=== PATIENT | female | born 2000 | race Caucasian/White ===

== ENCOUNTER → 2018-07-28 | Outpatient (CLI) | payer OTHER ==
[~2018-07-28] MED LIST: BCP; CRUTCH4 USE; MEDR150I IM; Prednisone20 MG PO; TRIA80TC TOP; Triamcinolone A15 GM TOP
== END ==
LOC: LAB SHORT 11:54 → LAB 11:54
DX: Z20.2 Contact with and (suspected) exposure to infections with a predominantly sexual mode of transmission (principal)
CPT/HCPCS: 87070; 87205

== ENCOUNTER 2019-02-21 12:38 | Day surgery (SDC) | payer OTHER ==
[2019-02-21 13:05] LABS: Hematocrit 41.3 % (33.0-51.0); Mean Corpuscular HGB 29.7 pg (26.0-34.0); Mean Corpuscular HGB Conc 33.9 g/dL (31.5-36.5); Mean Corpuscular Volume 88 fL (80-100); Mean Platelet Volume 11.4 fL (9.1-12.4); Platelet Count 252 K/mm3 (150-400); RDW Coefficient Variation 13.8 % (11.7-14.2); RDW Standard Deviation 44.5 fL (35.1-46.3); Red Blood Cell Count 4.71 M/mm3 (3.80-5.20); White Blood Cell Count 14.02 K/mm3 (4.00-11.30)
[2019-02-22] MEDS ORDERED: SERT25 PO (13:03)
== END 2019-02-21 22:43 | disposition home or self-care (01) ==
LOC: PRE 12:38 → EDSTATUS 02-17 10:50 → LAB FUT 02-17 10:50
PROVIDERS: Obstetrics & Gynecology
DX: O02.1 Missed abortion (principal)
CPT/HCPCS: 36415; 84702; 85027; 86850; 86900; 86901

== ENCOUNTER 2019-02-22 12:13 | Day surgery (SDC) | payer OTHER ==
[~2019-02-22] VITALS: Ht 167.6 cm; Wt 56.9 kg
[2019-02-22] MEDS ORDERED: SERT25 PO (13:03)
== END 2019-02-22 15:45 | disposition home or self-care (01) ==
LOC: ORSCSDS 12:13
PROVIDERS: Obstetrics & Gynecology
PROC: 10A07Z6 Abortion of Products of Conception, Vacuum, Via Natural or Artificial Opening (ICD-10-PCS; principal; 2019-02-22 13:30)
DX: O02.1 Missed abortion (principal); F17.210 Nicotine dependence, cigarettes, uncomplicated
CPT/HCPCS: 88305; J0690; J1100; J1885; J2210; J2250; J2405; J2704; J3010

== ENCOUNTER 2020-05-11 22:49 | Inpatient (IN) | payer OTHER ==
[~2020-05-11] VITALS: Ht 165.1 cm; Wt 63.0 kg
[~2020-05-11 22:49] MED LIST changes: +AMPDEX30CR; +CLON.5 PO; +SERT25 PO
[2020-05-11 23:58] LABS: U Amphetamine Screen Not Detected; U Barbituate Screen Not Detected; U Benzodiazapine Screen Not Detected; U Buprenorphine Screen Not Detected; U Cannabinoids Screen Not Detected; U Cocaine Screen Not Detected; U Methadone Screen Not Detected; U Methamphetamine Screen Not Detected; U Opiates Screen Not Detected; U Oxycodone Screen Not Detected; U Phencyclidine Screen Not Detected; U Propoxyphene Screen Not Detected
[2020-05-12 00:36] LABS: BASOPHILS ABSOLUTE AUTO 0.06 K/mm3 (0.00-0.23); BASOPHILS PERCENT AUTO 0 % (0-2); EOSINOPHILS ABSOLUTE AUTO 0.04 K/mm3 (0.00-0.68); EOSINOPHILS PERCENT AUTO 0 % (0-6); Hematocrit 39.4 % (33.0-51.0); Hemoglobin 13.3 g/dL (11.5-16.0); IMMATURE GRAN ABSOLUTE AUTO 0.08 K/mm3 (0.00-0.10); IMMATURE GRAN PERCENT AUTO 1 % (0-1); LYMPHOCYTES ABSOLUTE AUTO 1.96 K/mm3 (0.84-5.20); LYMPHOCYTES PERCENT AUTO 11 % (21-46); MONOCYTES ABSOLUTE AUTO 0.92 K/mm3 (0.16-1.47); MONOCYTES PERCENT AUTO 5 % (4-13); Mean Corpuscular HGB Conc 33.8 g/dL (31.5-36.5); Mean Corpuscular Volume 89 fL (80-100); Mean Platelet Volume 12.1 fL (9.1-12.4); NEUTROPHILS PERCENT AUTO 83 % (41-73); Platelet Count 241 K/mm3 (150-400); Red Blood Cell Count 4.43 M/mm3 (3.80-5.20); White Blood Cell Count 17.56 K/mm3 (4.00-11.30)
--- NOTE | 2020-05-12 13:55 | NUR ---
REPORT OFF TO TABITHA PASCUAL RN
[2020-05-13 04:59] LABS: Hematocrit 33.9 % (33.0-51.0); Mean Corpuscular HGB 29.6 pg (26.0-34.0); Mean Corpuscular HGB Conc 32.4 g/dL (31.5-36.5); Mean Corpuscular Volume 91 fL (80-100); Mean Platelet Volume 11.8 fL (9.1-12.4); Platelet Count 199 K/mm3 (150-400); RDW Coefficient Variation 13.4 % (11.7-14.2); RDW Standard Deviation 43.4 fL (35.1-46.3); Red Blood Cell Count 3.71 M/mm3 (3.80-5.20); White Blood Cell Count 12.14 K/mm3 (4.00-11.30)
== END 2020-05-13 11:30 | disposition home or self-care (01) | DRG 807 ==
LOC: OBS 22:49 → BC 22:52 → OBS 23:15 → BC 23:37
PROVIDERS: Advanced Practice Midwife; ADMIT Obstetrics & Gynecology
PROC: 10E0XZZ Delivery of Products of Conception, External Approach (ICD-10-PCS; principal; 2020-05-12)
PROC: 00HU33Z Insertion of Infusion Device into Spinal Canal, Percutaneous Approach (ICD-10-PCS; 2020-05-12)
PROC: 3E0R3BZ Introduction of Anesthetic Agent into Spinal Canal, Percutaneous Approach (ICD-10-PCS; 2020-05-12)
DX: O99.824 Streptococcus B carrier state complicating childbirth (principal); Z37.0 Single live birth; Z3A.39 39 weeks gestation of pregnancy; O99.324 Drug use complicating childbirth; F14.11 Cocaine abuse, in remission; O69.81X0 Labor and delivery complicated by cord around neck, without compression, not applicable or unspecified
CPT/HCPCS: 36415; 51702; 85025; 85027; 86850; 86900; 86901; A9270; J0290; J1885; J2001; J2590; J3010; J7120

== ENCOUNTER → 2021-09-19 | Outpatient (CLI) | payer OTHER ==
[2021-09-19 16:52] LABS: BASOPHILS ABSOLUTE AUTO 0.12 K/mm3 (0.00-0.23); BASOPHILS PERCENT AUTO 1 % (0-2); EOSINOPHILS ABSOLUTE AUTO 0.07 K/mm3 (0.00-0.68); EOSINOPHILS PERCENT AUTO 1 % (0-6); Hematocrit 40.3 % (33.0-51.0); Hemoglobin 12.7 g/dL (11.5-16.0); IMMATURE GRAN ABSOLUTE AUTO 0.05 K/mm3 (0.00-0.10); IMMATURE GRAN PERCENT AUTO 1 % (0-1); LYMPHOCYTES PERCENT AUTO 19 % (21-46); MONOCYTES ABSOLUTE AUTO 0.62 K/mm3 (0.16-1.47); MONOCYTES PERCENT AUTO 7 % (4-13); Mean Corpuscular HGB Conc 31.5 g/dL (31.5-36.5); Mean Corpuscular Volume 92 fL (80-100); Mean Platelet Volume 11.8 fL (9.1-12.4); NEUTROPHILS ABSOLUTE AUTO 6.34 K/mm3 (1.96-9.15); NEUTROPHILS PERCENT AUTO 71 % (41-73); Platelet Count 250 K/mm3 (150-400); RDW Standard Deviation 44.2 fL (35.1-46.3); Red Blood Cell Count 4.38 M/mm3 (3.80-5.20)
[2021-09-19 20:00] LABS: Alanine Aminotransfer (ALT/SGP 31 U/L (12-78); Albumin, Blood 4.1 g/dL (3.4-5.0); Albumin/Globulin Ratio 1.4 (0.8-1.8); Alk Phos 92 U/L (50-136); Anion Gap 6 mmol/L (6-16); Aspartate Aminotrans (AST/SGOT 21 U/L (12-37); Bilirubin, Total 0.2 mg/dL (0.1-1.0); Blood Urea Nitrogen 9 mg/dL (8-24); CO2, Blood 27 mmol/L (21-32); Calcium, Blood 9.9 mg/dL (8.5-10.1); Chloride, Blood 108 mmol/L (98-108); Creatinine, Blood 0.56 mg/dL (0.40-1.00); Glomerular Filtration Rate >60 (60-); Glucose, Blood 82 mg/dL (70-99); Potassium, Blood 4.3 mmol/L (3.5-5.5); Sodium, Blood 141 mmol/L (136-145); Total Protein, Blood 7.1 g/dL (6.4-8.2)
== END | disposition home or self-care (01) ==
LOC: LAB SHORT 11:52
PROVIDERS: Nurse Practitioner
DX: Z11.59 Encounter for screening for other viral diseases (principal); F43.10 Post-traumatic stress disorder, unspecified; F41.9 Anxiety disorder, unspecified; F32.A Depression, unspecified
CPT/HCPCS: 80053; 84443; 85025; 86803

== ENCOUNTER → 2022-01-16 | Outpatient (CLI) | payer OTHER ==
[2022-01-21 20:09] LABS: HSV-1 DNA Negative (Negative); HSV-2 DNA Positive (Negative)
== END | disposition home or self-care (01) ==
LOC: LAB SHORT 11:38 → LAB 11:38
PROVIDERS: Registered Nurse Community Health
DX: Z20.2 Contact with and (suspected) exposure to infections with a predominantly sexual mode of transmission (principal)
CPT/HCPCS: 87529

== ENCOUNTER 2023-03-20 01:21 | Emergency (ER) | payer OTHER ==
[~2023-03-20] VITALS: Ht 160 cm; Wt 54.4 kg
[2023-03-20 01:55] VITALS: BP 127/90
[2023-03-20] MEDS ORDERED: SEROQUEL100 MG PO (02:00)
== END 2023-03-20 02:57 | disposition home or self-care (01) ==
LOC: ER 01:21
DX: S81.811A Laceration without foreign body, right lower leg, initial encounter (principal); F17.200 Nicotine dependence, unspecified, uncomplicated; W07.XXXA Fall from chair, initial encounter
CPT/HCPCS: 99282

== ENCOUNTER → 2024-02-24 | Outpatient (CLI) | payer OTHER ==
[~2024-02-24] MED LIST changes: +SEROQUEL100 MG PO
[2024-02-24 13:42] LABS: U Amphetamine Screen Not Detected; U Barbituate Screen Not Detected; U Benzodiazapine Screen Not Detected; U Buprenorphine Screen Not Detected; U Cannabinoids Screen Not Detected; U Cocaine Screen Not Detected; U Methadone Screen Not Detected; U Methamphetamine Screen Not Detected; U Opiates Screen Not Detected; U Oxycodone Screen Not Detected; U Phencyclidine Screen Not Detected
== END | disposition home or self-care (01) ==
LOC: LAB SHORT 10:07 → LAB 10:07
PROVIDERS: Advanced Practice Midwife
DX: F19.11 Other psychoactive substance abuse, in remission (principal)

== ENCOUNTER → 2024-06-16 | Outpatient (CLI) | payer OTHER | LOC: LAB SHORT 14:32 → LAB 14:32 | DX: O09.90 Supervision of high risk pregnancy, unspecified, unspecified trimester (principal) | CPT/HCPCS: 87081; 87150 ==

== ENCOUNTER → 2024-07-05 | Outpatient (CLI) | payer OTHER ==
[~2024-07-05] MED LIST changes: +ACYC800 PO
[2024-07-05 14:14] LABS: Bacterial Vaginosis PCR Negative (NEGATIVE); Candida glabrata-krusei, PCR NOT DETECTED (NOT DETECT)
[2024-07-05 14:17] LABS: Candida Group, PCR DETECTED (NOT DETECT)
== END | disposition home or self-care (01) ==
LOC: LAB SHORT 12:05 → LAB 12:05
PROVIDERS: Advanced Practice Midwife
DX: O09.90 Supervision of high risk pregnancy, unspecified, unspecified trimester (principal)
CPT/HCPCS: 81515

== ENCOUNTER 2024-07-15 19:16 | Inpatient (IN) | payer OTHER ==
[~2024-07-15] VITALS: Ht 165.1 cm; Wt 79.3 kg
[~2024-07-15 19:16] MED LIST changes: -ACYC800 PO
[2024-07-15 19:29] VITALS: BP 128/76
[2024-07-15] MEDS ORDERED: Carboprost Tromethamine 250 MCG/ML 1ML Amp IM PRN (19:35)
[2024-07-15] MEDS ORDERED: Misoprostol 200 MCG Tab BC PRN (19:35)
[2024-07-15] MEDS ORDERED: ePHEDrine Sulfate 50 MG/ML 1ML Injection XX PRN (19:35)
[2024-07-15] MEDS ORDERED: Acetaminophen 500 MG Tab PO PRN (19:35)
[2024-07-15] MEDS ORDERED: Oxytocin 10 Unit / ML Vial IM PRN (19:35)
[2024-07-15] MEDS ORDERED: Lactated Ringer's 1,000 ML IV PRN ×3 (19:35→19:40)
[2024-07-15] MEDS ORDERED: FentaNYL 2mcg/ml-Bup 0.1% Epd 250 ML EPI PRN (19:35)
[2024-07-15] MEDS ORDERED: Misoprostol 200 MCG Tab PR PRN (19:35)
[2024-07-15] MEDS ORDERED: Methylergonovine Maleate 0.2MG / ML 1ML Amp IM PRN (19:35)
[2024-07-15] MEDS ORDERED: Ondansetron HCl 2 MG / ML 2ML Vial IV PRN (19:35)
[2024-07-15] MEDS ORDERED: Tranexamic Acid 100 ML IV SCH (19:35)
[2024-07-15] MEDS ORDERED: OXYTOCIN/RINGER'S LACTATE 500 ML IV PRN (19:35)
[2024-07-15] MEDS ORDERED: Calcium Carbonate 500 MG Tab Chew PO PRN (19:40)
[2024-07-15] MEDS ORDERED: FentaNYL Citrate 50 MCG/ML 2 ML Injection IV PRN (19:45)
[2024-07-15 20:17] LABS: BASOPHILS ABSOLUTE AUTO 0.04 K/mm3 (0.00-0.23); BASOPHILS PERCENT AUTO 0 % (0-2); EOSINOPHILS ABSOLUTE AUTO 0.06 K/mm3 (0.00-0.68); EOSINOPHILS PERCENT AUTO 1 % (0-6); Hematocrit 34.7 % (33.0-51.0); Hemoglobin 12.1 g/dL (11.5-16.0); IMMATURE GRAN ABSOLUTE AUTO 0.04 K/mm3 (0.00-0.10); IMMATURE GRAN PERCENT AUTO 0 % (0-1); LYMPHOCYTES ABSOLUTE AUTO 1.35 K/mm3 (0.84-5.20); LYMPHOCYTES PERCENT AUTO 13 % (21-46); MONOCYTES ABSOLUTE AUTO 0.58 K/mm3 (0.16-1.47); MONOCYTES PERCENT AUTO 6 % (4-13); Mean Corpuscular HGB 30.2 pg (26.0-34.0); Mean Corpuscular HGB Conc 34.9 g/dL (31.5-36.5); Mean Corpuscular Volume 87 fL (80-100); Mean Platelet Volume 12.6 fL (9.1-12.4); NEUTROPHILS ABSOLUTE AUTO 8.51 K/mm3 (1.96-9.15); NEUTROPHILS PERCENT AUTO 80 % (41-73); Platelet Count 225 K/mm3 (150-400); RDW Coefficient Variation 14.4 % (11.7-14.2); RDW Standard Deviation 44.3 fL (35.1-46.3); Red Blood Cell Count 4.01 M/mm3 (3.80-5.20); White Blood Cell Count 10.58 K/mm3 (4.00-11.30)
[2024-07-15] MEDS ORDERED: FentaNYL Citrate 50 MCG/ML 2 ML Injection IV ONE (20:25)
[2024-07-15] MEDS ORDERED: ACYC800 PO (20:46)
[2024-07-15 20:54] VITALS: BP 129/80
[2024-07-15] MEDS ORDERED: Zolpidem Tartrate 10 MG Tab PO PRN (20:55)
[2024-07-16] VITALS (42 sets, daily range): BP systolic 83–142; BP diastolic 50–93
[2024-07-16] MEDS ORDERED: Lactated Ringer's 1,000 ML IV SCH ×2 (05:00→16:20)
[2024-07-16] MEDS ORDERED: OXYTOCIN/RINGER'S LACTATE 500 ML IV SCH ×2 (05:00→16:20)
[2024-07-16] MEDS ORDERED: Lanolin Cream TOP PRN (16:20)
[2024-07-16] MEDS ORDERED: Methylergonovine Maleate 0.2MG / ML 1ML Amp IM PRN (16:20)
[2024-07-16] MEDS ORDERED: Ibuprofen 400 MG Tab PO PRN (16:20)
[2024-07-16] MEDS ORDERED: Ketorolac Tromethamine 30mg Vial IV PRN (16:20)
[2024-07-16] MEDS ORDERED: Carboprost Tromethamine 250 MCG/ML 1ML Amp IM PRN (16:25)
[2024-07-16] MEDS ORDERED: Oxytocin 10 Unit / ML Vial IM ONE (16:25)
[2024-07-16] MEDS ORDERED: Witch Hazel/Glycerin PADS TOP PRN (16:25)
[2024-07-16] MEDS ORDERED: FLU VACC TS2024-25(6MOS UP)/PF 45 MCG/0.5 ML SYRINGE IM SCH (16:25)
[2024-07-16] MEDS ORDERED: Misoprostol 200 MCG Tab PR PRN (16:25)
[2024-07-16] MEDS ORDERED: Docusate Sodium 100 MG Cap PO PRN (16:25)
[2024-07-16] MEDS ORDERED: Benzocaine Topical Anesthetic Spray 60GM TOP PRN (16:25)
[2024-07-16] MEDS ORDERED: Acetaminophen 500 MG Tab PO PRN (16:25)
--- NOTE | 2024-07-16 18:05 | NUR ---
pt legs still very numb. voided with fundal check
[2024-07-17 05:05] VITALS: BP 114/56
[2024-07-17 08:24] VITALS: BP 117/62
[2024-07-17] MEDS ORDERED: Prenatal Vit/FE Fumarate/FA 1 Tab PO SCH (09:00)
[2024-07-17] MEDS ORDERED: OxyCODONE HCL 5 MG TAB PO ONE (10:55)
[2024-07-17 11:02] VITALS: BP 115/57
[2024-07-17] MEDS ORDERED: OxyCODONE HCL 5 MG TAB PO PRN (14:30)
[2024-07-17] MEDS ORDERED: ACET500 PO (14:51)
[2024-07-17] MEDS ORDERED: IBUP800 PO (14:51)
[2024-07-17] MEDS ORDERED: DOCU100 PO (14:52)
[2024-07-17 16:31] VITALS: BP 130/81
--- NOTE | 2024-07-17 17:05 | NUR ---
discharge instructions reviewed with patient and . questions answered. will follow up friday at 3pm. pt requested a few oxy to go home with, but dr cao states Mellissa could have an Oxy prior to dc but not a prescription for it. Per Jason, if mellissa feels she needs more pain medication at home that she needs to call the office. pt verbalizes understanding. pt well and bleeding scant. discharged home with and at side.
--- NOTE | 2024-07-17 17:55 | NUR ---
PT DISCHARGED WITH IV. RETURNED BACK TO [facility]. IV REMOVED BY THIS RN WITH TIP INTACT.
== END 2024-07-17 17:13 | disposition home or self-care (01) | DRG 807 ==
LOC: OBS 19:16 → BC 19:21 → OBS 19:37 → BC 19:40
PROVIDERS: ADMIT Advanced Practice Midwife
PROC: 10E0XZZ Delivery of Products of Conception, External Approach (ICD-10-PCS; principal; 2024-07-16)
PROC: 0U7C7ZZ Dilation of Cervix, Via Natural or Artificial Opening (ICD-10-PCS; 2024-07-16)
PROC: 3E033VJ Introduction of Other Hormone into Peripheral Vein, Percutaneous Approach (ICD-10-PCS; 2024-07-16)
PROC: 10907ZC Drainage of Amniotic Fluid, Therapeutic from Products of Conception, Via Natural or Artificial Opening (ICD-10-PCS; 2024-07-16)
DX: O98.32 Other infections with a predominantly sexual mode of transmission complicating childbirth (principal); Z37.0 Single live birth; A60.00 Herpesviral infection of urogenital system, unspecified; O69.81X0 Labor and delivery complicated by cord around neck, without compression, not applicable or unspecified; O77.0 Labor and delivery complicated by meconium in amniotic fluid; O99.344 Other mental disorders complicating childbirth; O99.334 Smoking (tobacco) complicating childbirth; F17.200 Nicotine dependence, unspecified, uncomplicated; F90.9 Attention-deficit hyperactivity disorder, unspecified type; F31.9 Bipolar disorder, unspecified; O71.89 Other specified obstetric trauma; Z3A.39 39 weeks gestation of pregnancy; Z79.899 Other long term (current) drug therapy
CPT/HCPCS: 36415; 51702; 59200; 85025; 86850; 86900; 86901; 86923; A9270; J1885; J2405; J3010; J7120

== ENCOUNTER → 2024-09-09 | Outpatient (CLI) | payer OTHER ==
[~2024-09-09] MED LIST changes: +ACET500 PO; +ACYC800 PO; +DOCU100 PO; +IBUP800 PO
[2024-09-09 20:03] LABS: Candida glabrata-krusei, PCR NOT DETECTED (NOT DETECT)
[2024-09-09 20:04] LABS: Bacterial Vaginosis PCR Positive (NEGATIVE); Candida Group, PCR DETECTED (NOT DETECT)
[2024-09-09 20:34] LABS: Chlamydia Trachomatis Vaginal NOT DETECTED (NOT DETECT); Neisseria Gonorrhoea Vaginal NOT DETECTED (NOT DETECT)
== END ==
LOC: LAB 16:41 → LAB SHORT 16:41
PROVIDERS: Registered Nurse Community Health
DX: N89.8 Other specified noninflammatory disorders of vagina (principal)
CPT/HCPCS: 81515; 87491; 87591